=== PATIENT | female | born 1975 | race Caucasian/White ===

== ENCOUNTER 2022-01-01 21:48 | Emergency (ER) | payer BC ==
[2022-01-01 22:14] VITALS: BP 131/85; PULSE 73; RESP 19; TEMP 97.8; BMI 29.1
[2022-01-01] MEDS ORDERED: ACETAMINOPHEN 500 MG TABLET (FP) PO ONE (23:09)
[2022-01-01] MEDS ORDERED: ACETAMINOPHEN 325 MG TABLET (FP) ONE (23:34)
[2022-01-01 23:37] LABS: BASO % 0.8 % (0-2.0); EOS % 1.5 % (0-4.5); HEMATOCRIT 39.7 % (32.4-45.2); HEMOGLOBIN 13.7 GM/dL (10.7-15.3); LYMPH % 22.5 % (8-40); MCH 28.8 pg (25.7-33.7); MCHC 34.5 g/dl (32.0-36.0); MEAN CELL VOLUME 83.6 fl (80-96); MEAN PLT VOLUME 7.5 fl (7.5-11.1); MONO % 7.2 % (3.8-10.2); PLATELET COUNT 284 10^3/uL (134-434); RBC 4.74 M/mm3 (3.60-5.2); RDW 13.3 % (11.6-15.6); WHITE BLOOD COUNT 8.7 K/mm3 (4.0-10.0)
[2022-01-01 23:44] LABS: INR 1.05 (0.83-1.09); PROTHROMBIN TIME (PATIENT) 12.1 SEC (9.7-13.0)
[2022-01-01 23:46] LABS: ACTIVATED PTT 33.2 SECONDS (25.2-36.5)
[2022-01-02 00:06] LABS: CALCIUM 9.5 mg/dL (8.5-10.1)
[2022-01-02 00:07] LABS: ALBUMIN 3.9 g/dl (3.4-5.0); BLOOD UREA NITROGEN 9.8 mg/dL (7-18); MAGNESIUM 2.1 mg/dL (1.8-2.4)
[2022-01-02 00:10] LABS: CREATININE 0.7 mg/dL (0.55-1.3)
[2022-01-02 00:11] LABS: BILIRUBIN,TOTAL 0.3 mg/dL (0.2-1); TOT PROT 7.4 g/dl (6.4-8.2)
[2022-01-02 00:45] LABS: HCG,QUALITATIVE URINE Negative
[2022-01-02 00:55] LABS: URINE APPEARANCE CLOUDY; URINE BILIRUBIN NEGATIVE (NEGATIVE); URINE COLOR YELLOW; URINE GLUCOSE (UA) NEGATIVE (NEGATIVE); URINE KETONE NEGATIVE (NEGATIVE)
[2022-01-02 00:56] LABS: PH,URINE 6.5 (5.0-8.0); URINE LEUK ESTERASE 4+ (NEGATIVE); URINE NITRITE POSITIVE (NEGATIVE); URINE PROTEIN 30 (NEGATIVE)
[2022-01-02 00:57] LABS: EPI CELLS 26.6 /uL (0-25.1); HYALINE CASTS 0.37 /uL (0-3.1); URINE BACTERIA 25380.3 /uL (0-1359); URINE RBC 328.4 /uL (0-23.9); URINE WBC 1491.4 /uL (0-25.8)
[2022-01-02] MEDS ORDERED: CEPHALEXIN MONOHYDRATE 500 MG CAPSULE (UD) PO ONE (01:34)
[2022-01-02] MEDS ORDERED: CEPHALEXIN MONOHYDRATE 500 MG CAPSULE (UD) ONE (02:02)
== END 2022-01-02 02:47 | disposition home or self-care (01) ==
LOC: JER 21:48
DX: N39.0 Urinary tract infection, site not specified (principal)
CPT/HCPCS: 36415; 74177-TC; 80053; 81003; 83735; 84703; 85025; 85610; 85730; 86850; 86900; 86901; 87086; 87186; 99285-25; C9803-CS; Q9967; U0003; U0005

== ENCOUNTER 2022-03-29 22:11 | Emergency (ER) | payer BC, OTHER ==
[2022-03-29 22:15] VITALS: RESP 18; BMI 29.1
[2022-03-29] MEDS ORDERED: ACETAMINOPHEN 325 MG TABLET (FP) PO ONE (23:22)
[2022-03-29] MEDS ORDERED: PROCHLORPERAZINE INJECTION 10 MG/2 ML VIAL IVPB ONE (23:41)
[2022-03-29] MEDS ORDERED: ACETAMINOPHEN INJECTION 100 ML IVPB ONE (23:53)
[2022-03-29] MEDS ORDERED: ACETAMINOPHEN 325 MG TABLET (FP) ONE (23:57)
[2022-03-30 00:10] LABS: HEMATOCRIT 40.6 % (32.4-45.2); HEMOGLOBIN 13.8 GM/dL (10.7-15.3); MCH 28.9 pg (25.7-33.7); MEAN CELL VOLUME 84.9 fl (80-96); PLATELET COUNT 302 10^3/uL (134-434); RBC 4.79 M/mm3 (3.60-5.2); RDW 13.5 % (11.6-15.6); WHITE BLOOD COUNT 6.4 K/mm3 (4.0-10.0)
[2022-03-30 00:22] LABS: CALCIUM 9.2 mg/dL (8.5-10.1)
[2022-03-30 00:23] LABS: ALBUMIN 3.8 g/dl (3.4-5.0)
[2022-03-30 00:26] LABS: CREATININE 0.8 mg/dL (0.55-1.3)
[2022-03-30 00:28] LABS: BILIRUBIN,TOTAL 0.3 mg/dL (0.2-1); TOT PROT 7.4 g/dl (6.4-8.2)
[2022-03-30 00:44] LABS: INR 1.07 (0.83-1.09); PROTHROMBIN TIME (PATIENT) 12.3 SEC (9.7-13.0)
[2022-03-30] MEDS ORDERED: PROCHLORPERAZINE INJECTION 10 MG/2 ML VIAL ONE (01:04)
[2022-03-30 03:11] VITALS: BP 126/69; PULSE 63; TEMP 97.8
== END 2022-03-30 05:15 | disposition home or self-care (01) ==
LOC: JER 22:11
PROC: 3E033GC Introduction of Other Therapeutic Substance into Peripheral Vein, Percutaneous Approach (ICD-10-PCS; principal; 2022-03-29)
DX: R42 Dizziness and giddiness (principal); R07.9 Chest pain, unspecified
CPT/HCPCS: 36415; 70450-TC; 71046-TC-FY; 80053; 84484; 84702; 85027; 85379; 85610; 85651; 85730; 86140; 93005; 93010; 99285-25

== ENCOUNTER 2023-08-12 17:01 | Emergency (ER) | payer OTHER, BC ==
[2023-08-12 17:11] VITALS: BP 170/80; PULSE 61; RESP 18; TEMP 98.7; BMI 23.3
[2023-08-12] MEDS ORDERED: LIDOCAINE 4% PATCH TP ONE (18:38)
[2023-08-12] MEDS ORDERED: CYCLOBENZAPRINE HCL 10 MG TABLET (FP) ONE (18:38)
[2023-08-12] MEDS ORDERED: IBUPROFEN 400 MG TABLET (FP) PO ONE (18:39)
[2023-08-12] MEDS: LIDOCAINE 4% PATCH TP ONE (18:43)
[2023-08-12] MEDS: CYCLOBENZAPRINE HCL 10 MG TABLET (FP) PO ONE (18:43)
[2023-08-12] MEDS: IBUPROFEN 400 MG TABLET (FP) PO ONE (18:43)
[2023-08-12] MEDS ORDERED: LIDOCAINE PATCH REMOVAL MC SCH (22:00)
== END 2023-08-12 19:42 | disposition home or self-care (01) ==
LOC: JERFT 17:01
DX: M25.512 Pain in left shoulder (principal); M54.2 Cervicalgia; V49.50XA Passenger injured in collision with unspecified motor vehicles in traffic accident, initial encounter; Y92.410 Unspecified street and highway as the place of occurrence of the external cause
CPT/HCPCS: 71046-TC-FY; 72125-TC; 99284-25